=== PATIENT | male | born 1990 | race Caucasian/White ===

== ENCOUNTER 2019-03-26 10:57 | Emergency (ER) | payer SELFPAY ==
[2019-03-26 11:08] VITALS: BP 140/93; PULSE 63; RESP 18; TEMP 36.6; O2SAT 98; BMI 29.5
--- NOTE | 2019-03-26 11:14 | ED_ITS ---
Entered by Courtney Wilburn, acting as scribe for Mar 26, 2019 10:57 HPI - Extremity Problem General: Chief complaint: Extremity Injury, Upper Stated complaint: RIGHT HAND BURN Time Seen by Provider: 03/26/19 11:13 Source: patient, family and RN notes reviewed Mode of arrival: ambulatory Limitations: no limitations History of Present Illness: HPI Narrative: 28 yo male presents to ED with complaints of a burn to his R hand. He said he was cleaning a fryer last night at 1999 when his hand slipped. He has not taken anything for pain. his only medical history is migraines for which he gets a monthly shot. MD Complaint: extremity pain (R hand, R forearm) Onset (ago): day(s) (last night) Pain Consistency: constant Location: right (arm, forearm) Severity scale (1-10): 10 Quality: burning Radiation: none Relieving factors: nothing Exacerbating factors: range of motion Associated symptoms: Reports no associated symptoms; Deny fever(s) or rash Review of Systems Const: Denies: fever Resp: Denies: shortness of breath Skin/Breast: Denies: rash Neuro: Denies: numbness in extremities or weakness in extremities [facility] ED PFSH: Social History Smoking and tobacco status: current every day smoker Physical Exam Const: COMMON NORMALS: no apparent distress, oriented x3 and alert GENERAL APPEARANCE: cooperative and well developed; not in distress and not diaphoretic ORIENTATION/CONSCIOUSNESS: Yes awake, Yes oriented to person, Yes oriented to place and Yes oriented to time HENMT: COMMON NORMALS: normocephalic, head/scalp atraumatic and moist oral mucous membranes HEAD & SCALP: normocephalic and atraumatic FACE & SINUS: normal facial exam; no facial tenderness Neck/C-Spine: COMMON NORMALS: full ROM, supple and no JVD GENERAL: Yes normal visual inspection and Yes trachea midline CERVICAL SPINE: No cervical spine tenderness Lymph: LYMPHATIC: no lymphadenopathy noted Chest: COMMONS NORMALS: inspection of chest normal Resp: COMMON NORMALS: normal respiratory effort, no use of accessory muscles and clear to auscultation bilaterally EFFORT & INSPECTION: Yes able to speak in complete sentences and Yes symmetric chest movement AUSCULTATION: clear to auscultation bilaterally Cardio: COMMON NORMALS: no JVD, regular rate, regular rhythm, no gallops, no murmurs and peripheral pulses 2+ throughout RATE: regular rate RHYTHM: regular rhythm PERIPHERAL PULSES: pulses 2+ throughout Extremity: COMMON NORMALS: full ROM and normal capillary refill RIGHT UPPER EXTREMITY: Yes hand & digits (holden with intact blisters on the right hand, along the ulnar aspect ) Right hand and digits: Yes inspection (no holden across joints, no circumfrential holden) Neuro: COMMON NORMALS: oriented x3, moves all extremities, no focal motor deficits and no sensory deficits noted SENSORIUM/ORIENTATION: Yes alert, Yes oriented to person, Yes oriented to place and Yes oriented to time Psych: COMMON NORMALS: mental status grossly normal, thought process normal, cooperative, affect normal, speech normal and activity/motor behavior normal SPEECH: Yes normal speech THOUGHT PROCESS: normal thought process Skin: COMMON NORMALS: skin turgor normal GENERAL SKIN EXAM: turgor normal Course ED course: holden to the right hand related to hot grease - occurred last night. Intact blisters - discussed pain control, wound care with the patient and family. Outpatient follow up for wound healing. Vital Signs: Vital signs: Vital Signs Temperature 97.8 F 03/26/19 11:57 Pulse Rate 69 03/26/19 11:57 Respiratory Rate 18 03/26/19 11:57 Blood Pressure 137/81 03/26/19 11:57 Pulse Oximetry 99 03/26/19 11:57 Discharge Plan Discharge Patient Disposition: Home, Self-Care Clinical Impression: Burn of hand, right, second degree Qualifiers: Encounter type: initial encounter Burn of hand location: multiple sites Qualified Code(s): T23.201A - Burn of second degree of right hand, unspecified site, initial encounter Condition: Stable Prescriptions: New oxycodone 5 mg capsule 5 mg PO Q4H PRN (Reason: pain) Qty: 14 RF: 0 No Action lisinopril 5 mg tablet RF: 0 Discharge Orders: Discharge Order (Routine); Ordered 03/26/19 Ordered By: Nicole Car Referrals: Sheila Degroot FNP [Family Provider] - 4-7 days (For wound check) Patient Instructions: Partial Thickness Burn (ED) Activity Restrictions/Additional Instructions: Take ibuprofen for pain - you can take 600 mg (three over the counter tablets) every 6 hours. You can also take tylenol - 1000 mg every 6 hours. Use the prescribed pain medicine as needed for severe pain - do not drive while taking that medicine. Keep the holden clean and covered with anti-biotic ointment and a non-stick dressing. If the blisters pop, wash carefully and you can trim the edges with a CLEAN pair of scissors - or see Sheila at the clinic to have the edges trimmed. Return to the ED of see Sheila if increased pain, swelling, fever, thick yellow drainage. Stand Alone Forms: Work/School Release Discharge Date/Time: 03/26/19 11:55 Coding Level of Care Code ED Housekeeping Coordinator for Chg Fwd Exam Problem Focused The documentation recorded by the Akila johnston Valerie R, accurately reflects the service I personally performed and the decisions made by , Nicole Car MD Mar 26, 2019 10:57
--- NOTE | 2019-03-26 11:21 | PC.NURSE ---
BLISTERS NOTED TO OUTER PALM OF RIGHT HAND 4TH AND 5TH FINGERS GOOD MOVEMENT OF FINGERS
[2019-03-26] MEDS: ibuprofen 600 mg Tablet PO (11:38)
[2019-03-26 11:39] VITALS: RESP 18
[2019-03-26] MEDS: oxyCODONE-APAP 10-325 mg Tablet 1 TAB PO (11:39)
[2019-03-26] MEDS: tetanus-dipt-pertussis 0.5 mL SDV IM (11:39)
[2019-03-26] MEDS: bacitracin ointment Pkt 1 EACH TOPICAL (11:56)
[2019-03-26 11:57] VITALS: BP 137/81; PULSE 69; RESP 18; TEMP 36.6; O2SAT 99
== END 2019-03-26 11:55 | disposition home or self-care (01) ==
PROVIDERS: Emergency Provider Emergency Medicine; Family Provider Nurse Practitioner Family
DX: T23.201A Burn of second degree of right hand, unspecified site, initial encounter (principal); F17.200 Nicotine dependence, unspecified, uncomplicated; X10.2XXA Contact with fats and cooking oils, initial encounter
CPT/HCPCS: 90471; 90715; 99281; 99283

== ENCOUNTER → 2019-12-08 08:48 | Outpatient (BNVA) | payer BC, SELFPAY | PROVIDERS: Family Provider Nurse Practitioner Family; Visit Provider Psychiatry & Neurology Psychiatry | DX: F33.2 Major depressive disorder, recurrent severe without psychotic features (principal); F15.21 Other stimulant dependence, in remission; F12.20 Cannabis dependence, uncomplicated; F10.21 Alcohol dependence, in remission; F11.20 Opioid dependence, uncomplicated | CPT/HCPCS: 80053; 85025; 99204 ==

== ENCOUNTER → 2019-12-10 07:38 | Outpatient (BNVA) | payer BC, SELFPAY | PROVIDERS: Family Provider Nurse Practitioner Family; Visit Provider Psychiatry & Neurology Psychiatry | DX: F33.2 Major depressive disorder, recurrent severe without psychotic features (principal); F15.21 Other stimulant dependence, in remission | CPT/HCPCS: 99213 ==

== ENCOUNTER → 2019-12-22 07:45 | Outpatient (BNVA) | payer BC, SELFPAY | PROVIDERS: Family Provider Nurse Practitioner Family; Visit Provider Psychiatry & Neurology Psychiatry | DX: F33.2 Major depressive disorder, recurrent severe without psychotic features (principal); F10.21 Alcohol dependence, in remission; F12.20 Cannabis dependence, uncomplicated; F15.21 Other stimulant dependence, in remission | CPT/HCPCS: 99213 ==

== ENCOUNTER → 2020-01-19 07:39 | Outpatient (BNVA) | payer BC, SELFPAY | PROVIDERS: Family Provider Nurse Practitioner Family; Visit Provider Psychiatry & Neurology Psychiatry | DX: F33.2 Major depressive disorder, recurrent severe without psychotic features (principal); F10.21 Alcohol dependence, in remission; F12.20 Cannabis dependence, uncomplicated; F15.21 Other stimulant dependence, in remission; F11.20 Opioid dependence, uncomplicated | CPT/HCPCS: 99213 ==

== ENCOUNTER → 2020-03-30 07:35 | Outpatient (BNVA) | payer OTHER, SELFPAY | PROVIDERS: Family Provider Nurse Practitioner Family; Visit Provider Psychiatry & Neurology Psychiatry | DX: F33.2 Major depressive disorder, recurrent severe without psychotic features (principal); F10.21 Alcohol dependence, in remission; F12.20 Cannabis dependence, uncomplicated; F15.21 Other stimulant dependence, in remission; F11.20 Opioid dependence, uncomplicated | CPT/HCPCS: 99214 ==

== ENCOUNTER 2021-07-29 02:47 | Emergency (ER) | payer OTHER, MEDICAID, SELFPAY ==
[2021-07-29 02:55] VITALS: BP 149/104; PULSE 86; RESP 17; TEMP 36.8; O2SAT 96; BMI 25.1
--- NOTE | 2021-07-29 03:54 | PC.NURSE ---
Went to patients room to draw blood and he stated he wanted to just be discharged. He said he would stay if we allowed him to walk out to the street and smoke. advised him we couldn't do that and he said he would just sign out then and did not want his labs drawn. He had already had this conversation with Dr Thakur and we told the same by Dr Thakur. Patient signed the AMA form and was escorted to the waiting room.
--- NOTE | 2021-07-29 03:56 | PC.NURSE ---
Pt. stated that he wants to go home and sleep it off. Pt. states that he is not suicidal and is not homicidal. and has signed out AMA. The patients called as the patient was leaving , after what looked like the patient called her on the phone, and she she was angry because he was aloud to sign himself out. she states what am I supposed to do let him come home and kill himself?!! I explained that I can not give her advice on what to do , and that the patient denied several times that he was not suicidal or homicidal.
--- NOTE | 2021-07-29 04:28 | ED.C_ITS ---
HPI - Psych General: Chief Complaint: Psychiatric Symptoms Stated Complaint: Anxiety Time Seen by Provider: 07/29/21 02:55 Source: patient History of Present Illness: 30-year-old male who was involved in an argument tonight with his . Police and EMS were called. He presents by EMS. No affidavits were signed. He notes that he was upset, and feeling down and depressed as well as anxious. He has had a distant history of psychiatric problems requiring admission, but this was over 10 years ago. He denies specific suicidal thoughts or homicidal thoughts or actions this evening. He does note that maybe things would be better if I just was not here . He, however, does not wish to commit suicide, as he has responsibilities to his family. He is a history of substance abuse, however has not had any substance use in quite some time. He notes that he has been having up to 2 drinks at night to manage his stress level both at work and at home. MD complaint: feels depressed and other Onset (ago): hour(s) Duration: constant History of same: Yes Relieving factors: none Exacerbating factors: none Context: recent alcohol abuse and significant life stressor Associated psychiatric symptoms: depression Associated symptoms: Reports depression; Deny auditory hallucinations, visual hallucinations, delusions, homicidal ideation, suicidal ideation or racing thoughts Review of Systems Const: Denies: fever(s) ENMT: Denies: throat pain Card: Denies: chest pain or palpitations Resp: Denies: dyspnea or productive cough GI: Denies: abdominal pain or vomiting Skin/Breast: Denies: rash Neuro: Denies: headache(s) Psych: Reports: depression; Denies: visual hallucinations, auditory hallucinations, suicidal ideation or homicidal ideation [facility] ED PFSH: Medical History Psychiatric care Social History Smoking and tobacco status: current every day smoker cigarettes Packs smoked per day: 0.25 Years cigarettes smoked: 15 Quit status (tobacco): has tried quititng Number of times tried to quit tobacco: 3 Second hand smoke exposure: No Current gender identity: Male Physical Exam Const: COMMON NORMALS: no acute distress GENERAL APPEARANCE: cooperative; not ill appearing HENMT: COMMON NORMALS: normocephalic, atraumatic and Normal external nose present HEAD & SCALP: normocephalic and atraumatic FACE & SINUS: normal facial exam and face symmetric NOSE: Normal external nose present THROAT: posterior oropharynx normal Eye: COMMON NORMALS: negative for Equal, round and reactive pupils present and negative for EOMs intact bilaterally PUPIL: No Equal, round and reactive pupils present Neck/C-Spine: GENERAL: Yes trachea midline Chest: CHEST: Yes Symmetrical chest wall rise Resp: COMMON NORMALS: normal respiratory effort, No use of accessory muscles and clear to auscultation bilaterally AUSCULTATION: clear to auscultation bilaterally Cardio: COMMON NORMALS: regular rate and regular rhythm RATE: regular rate RHYTHM: regular rhythm GI: COMMON NORMALS: Normal to inspection, nondistended, normoactive bowel sounds present Extremity: COMMON NORMALS: normal to inspection Neuro: RACHEL COMA SCALE: document GCS findings [place] coma scale eye opening: Spontaneous Rachel coma scale verbal response: Orientated [place] coma scale motor response: Obey commands [place] coma scale total score: 15 Psych: COMMON NORMALS: Normal thought process present, cooperative and speech normal ATTITUDE: Yes calm ACTIVITY/MOTOR BEHAVIOR: Yes appropriate eye contact SPEECH: Yes normal speech MOOD & AFFECT: Yes depressed mood and Yes tearful THOUGHT PROCESS: Normal thought process present THOUGHT CONTENT: No Suicidality present, No Homicidality present, No delusions and No Hallucination(s) present ATTENTION/CONCENTRATION: Yes attention grossly intact and Yes concentration grossly intact MEMORY/COGNITION: Yes memory grossly intact and Yes cognition grossly intact INSIGHT: Fair insight present (Psych) JUDGEMENT: Fair judgement present (Psych) Course Vital Signs: Vital signs: Vital Signs Temperature 98.2 F 07/29/21 02:55 Pulse Rate 86 07/29/21 02:55 Respiratory Rate 17 07/29/21 02:55 Blood Pressure 149/104 07/29/21 02:55 Pulse Oximetry 96 07/29/21 02:55 [facility] - Psych Medical Decision Making 30-year-old male presents after an argument with his . He is neither homicidal or suicidal. He is, however, quite depressed in appearance. He does not have any specific treatment for this. No affidavits were signed from professionals on scene with the patient. The patient appears medically stable. He wishes to go home. He was given the option of screening laboratory here, and the opportunity to rest in the ER while results came in, will discharge later this morning. He chose to sign out AGAINST MEDICAL ADVICE. He is medically stable. Psychiatrically, he is neither suicidal or homicidal. He will be allowed to sign out AMA. Discharge Plan Discharge Patient Disposition: Left Against Medical Advice Clinical Impression: Depression Prescriptions: No Action omeprazole 40 mg capsule,delayed release(DR/EC) 40 mg PO DAILY 0RF buprenorphine-naloxone 8-2 mg film 1 film SUBLINGUAL BID Qty: 60 0RF lisinopril 5 mg tablet 5 mg PO DAILY 0RF Coding Level of Care Code ED Technology Project Manager for Chg Fwd Exam Comprehensive
--- NOTE | 2021-07-30 08:44 | PC.NURSE ---
Per Appraiser, Trina, instructed to give pt. a work-release.
== END 2021-07-29 03:58 | disposition left against medical advice (07) ==
PROVIDERS: Emergency Provider Emergency Medicine
DX: F32.A Depression, unspecified (principal)
CPT/HCPCS: 99282

== ENCOUNTER 2023-08-20 16:55 | Emergency (ER) | payer OTHER, SELFPAY ==
[2023-08-20 17:05] VITALS: BP 124/82; PULSE 106; RESP 22; TEMP 36.7; O2SAT 98
--- NOTE | 2023-08-20 17:22 | ED_ITS ---
HPI - Back Pain/Injury General: Chief Complaint: Back Pain/Injury Stated Complaint: Back pain Time Seen by Provider: 08/20/23 17:10 History of Present Illness: 32-year-old male patient comes in today for complaints of left-sided low back pain. 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 Patient appears nontoxic. Patient does appear in moderate to severe pain. Review of Systems General: Reports: 10 or more systems reviewed and unremarkable except in HPI and below Musc: Reports: back pain PFSH ED PFSH: Social History Smoking and tobacco/nicotine status: current every day tobacco/nicotine user cigarettes Packs smoked per day: 0.25 Years cigarettes smoked: 15 Quit status (tobacco/nicotine): has tried quititng Number of times tried to quit tobacco: 3 Second hand smoke exposure: No Current gender identity: Male Physical Exam Const: COMMON NORMALS: alert HENMT: COMMON NORMALS: normocephalic HEAD & SCALP: normocephalic Neck/C-Spine: COMMON NORMALS: full ROM Resp: COMMON NORMALS: normal respiratory effort and clear to auscultation bilaterally AUSCULTATION: clear to auscultation bilaterally Cardio: COMMON NORMALS: regular rate and regular rhythm RATE: regular rate RHYTHM: regular rhythm GI: COMMON NORMALS: Soft to palpation PALPATION: Yes Soft to palpation Back/Pelvis: THORACIC SPINE/UPPER BACK: Yes normal to inspection LUMBAR SPINE/LOWER BACK: Yes paraspinal muscle tenderness and Yes paraspinal muscle spasm Extremity: COMMON NORMALS: normal to inspection Neuro: SENSORIUM/ORIENTATION: Yes alert Skin: COMMON NORMALS: turgor normal GENERAL SKIN EXAM: turgor normal Course Vital Signs: Vital signs: Vital Signs Temperature 98.0 F 08/20/23 17:05 Pulse Rate 106 H 08/20/23 17:05 Respiratory Rate 22 H 08/20/23 17:05 Blood Pressure 124/82 08/20/23 17:05 Pulse Oximetry 98 08/20/23 17:05 Oxygen Delivery Me thod Room Air 08/20/23 17:05 MDM - Back Pain/Injury Medical Decision Making 32-year-old male patient comes in today for complaints of mid to low back pain. On exam patient has tenderness to the left paraspinous muscles about L1 and 2. Patient has guarded movement due to pain. Differential diagnosis includes but not limited to lumbar strain, intervertebral disc disease, facet arthropathy. Patient most likely has a lumbar strain. Will go ahead and treat today with a injection of ketorolac and Ativan. Patient will be continued on cyclobenzaprine and diclofenac. Patient reports understanding of care plan and need for follow- up or return to the ER. No radiology studies performed this visit Discharge Plan Discharge Patient Disposition: Home Clinical Impression: Strain of lumbar region Qualifiers: Encounter type: initial encounter Qualified Code(s): S39.012A - Strain of muscle, fascia and tendon of lower back, initial encounter Condition: Stable Prescriptions: New cyclobenzaprine 10 mg tablet 10 mg PO TID PRN (Reason: muscle spasm) Qty: 15 0RF diclofenac sodium 75 mg tablet,delayed release (DR/EC) 75 mg PO BID Qty: 20 0RF No Action omeprazole 40 mg capsule,delayed release(DR/EC) 40 mg PO DAILY buprenorphine-naloxone 8-2 mg film 1 film SUBLINGUAL BID Qty: 60 0RF lisinopril 5 mg tablet 5 mg PO DAILY Discharge Orders: Discharge ED (Routine); Ordered 08/20/23 Ordered By: Rusty Garcia Discharge Diet: Usual diet Discharge Activity: Increase activity as tolerated Patient Instructions: Low Back Strain (ED), Lower Back Exercises (ED) Activity Restrictions/Additional Instructions: Try to maintain your normal activity as much as possible. Gentle stretching and range of motion exercises. Use medications as directed. Use acetaminophen for further pain relief. Use ice and heat for further pain relief. Use [id number] menthol muscle rubs for further relief. Follow-up with primary care for further instructions. Return to ED for new concerns. Coding Level of Care Code ED Drawing In Machine Tender Helper for Manjinder Joy
[2023-08-20] MEDS: ketorolac 30 mg/mL INJ IM (17:48)
[2023-08-20] MEDS: LORazepam 2 mg/mL INJ 1 mL 1 MG IM (17:51)
[2023-08-20 18:04] VITALS: RESP 16
== END 2023-08-20 18:07 | disposition home or self-care (01) ==
PROVIDERS: Emergency Provider Nurse Practitioner Family
DX: S39.012A Strain of muscle, fascia and tendon of lower back, initial encounter (principal); X50.0XXA Overexertion from strenuous movement or load, initial encounter; Y93.F2 Activity, caregiving, lifting; Y99.0 Civilian activity done for income or pay
CPT/HCPCS: 96372; 99284; J1885; J2060